=== PATIENT | female | born 1945 | race Caucasian/White ===

== ENCOUNTER 2021-11-02 17:21 | Inpatient (IN) | payer MEDICARE, OTHER ==
[2021-11-02 20:25] LABS: Hemoglobin 14.3 g/dL (12.0-16.0); Mean Corpuscular HGB CONC 33.4 g/dL (32.0-36.0); Mean Corpuscular Hemoglobin 29.3 pg (27.0-31.0); Mean Corpuscular Volume 87.9 fL (78.0-98.0); Platelet Count 204 thou/uL (130-400); RBC Distribution Width 12.1 % (11.5-14.5); Red Blood Cell (RBC) Count 4.86 mill/uL (4.20-5.40)
[2021-11-02 20:40] LABS: Band 14 % (5-11); Lymphocytes 5 % (21-51); MDiff Complete? YES; Monocytes 5 % (0-10); Neutrophil 75 % (42-75); Platelet Morphology Comment Appears Adequate; Polychromasia SLIGHT = 2-3 cells (100X) (0-2/hpf)
[2021-11-02 20:44] LABS: ALT (SGPT) 20 U/L (8-55); AST (SGOT) 12 U/L (5-34); Alkaline Phosphatase 83 U/L (40-110); Anion Gap 16 mmol/L (10-20); BUN (Urea Nitrogen) 18 mg/dL (9.8-20.1); Bilirubin, Total 0.6 mg/dL (0.2-1.2); Calc. Creatinine Clearance 0 mL/min (70-130); Calcium 9.3 mg/dL (7.8-10.44); Carbon Dioxide 23 mmol/L (23-31); Chloride 100 mmol/L (98-107); Globulin 3.2 g/dL (2.4-3.5); Glucose 454 mg/dL (83-110); Potassium 4.1 mmol/L (3.5-5.1); Protein, Total 7.2 g/dL (5.8-8.1); Sodium 135 mmol/L (136-145)
[2021-11-02] MEDS ORDERED: cefTRIAXone\\ROCEPHIN 2 GM VIAL ONE (21:40)
[2021-11-02] MEDS ORDERED: Insulin Regular 300 UNITS/3 ML VIAL ONE (22:57)
[2021-11-03 00:07] VITALS: BMI 30.7
[2021-11-03] MEDS ORDERED: Ondansetron ODT 4 MG TAB SL PRN (00:15)
[2021-11-03] MEDS ORDERED: Acetaminophen 325 MG TAB PO PRN (00:15)
[2021-11-03] MEDS ORDERED: Ondansetron PF 4 MG/2 ML Vial IVP PRN (00:15)
[2021-11-03] MEDS ORDERED: Dextrose 50% Abboject 50 ML SYRINGE SLOW IVP PRN (02:36)
[2021-11-03] MEDS ORDERED: HumaLOG 300 UNITS/3 ML VIAL SC PRN (02:36)
[2021-11-03] MEDS ORDERED: Dextrose 5% in Water 1,000 ML IV PRN (02:36)
[2021-11-03 04:03] LABS: Bacteria/HPF 1+ HPF (None Seen); Bilirubin Negative (Negative); Blood, Urine Trace (Negative); Clarity Clear (Clear); Glucose, Urine (Dipstick) Greater than 1000 mg/dL (Negative); Ketone, Urine Trace mg/dL (Negative); Leukocyte 75 Leu/uL (Negative); Nitrite 2+ (Negative); Protein, Urine (Dipstick) 20 mg/dL (Neg-Trace); RBC/HPF 0-3 HPF (0-3); Specific Gravity, Urine 1.024 (1.002-1.036); Squamous Epithelial 0-3 HPF (0-3); Urobilinogen Normal mg/dL (Less than 2); WBC/HPF Greater than 50 HPF (0-3); pH, Urine 5.5 (5.0-9.0)
[2021-11-03 04:04] LABS: Urine Culture Reflex Yes Yes
[2021-11-03] MEDS ORDERED: cefTRIAXone\\ROCEPHIN 2 GM in Sodium Chloride 0.9% 100 ML IVPB SCH (04:30)
[2021-11-03 05:09] LABS: #Eosinphils 0.1 thou/uL (0.0-0.7); #Lymphocytes 2.4 thou/uL (1.20-3.40); #Monocytes 1.2 thou/uL (0.11-0.59); #Neutrophils 13.9 thou/uL (1.40-6.50); %Basophils 0.2 % (0.0-1.0); %Eosinophils 0.3 % (0.0-10.0); %Lymphocytes 13.8 % (21.0-51.0); %Monocytes 6.7 % (0.0-10.0); Mean Corpuscular HGB CONC 34.3 g/dL (32.0-36.0); Mean Corpuscular Hemoglobin 29.7 pg (27.0-31.0); Mean Corpuscular Volume 86.8 fL (78.0-98.0); Mean Platelet Volume 7.7 fL (7.4-10.4); Platelet Count 172 thou/uL (130-400); RBC Distribution Width 12.1 % (11.5-14.5); Red Blood Cell (RBC) Count 4.36 mill/uL (4.20-5.40); White Blood Cell (WBC) Count 17.6 thou/uL (4.8-10.8)
[2021-11-03 05:27] LABS: Lactic Acid 1.4 mmol/L (0.5-2.2)
[2021-11-03 05:32] LABS: Anion Gap 9 mmol/L (10-20); BUN (Urea Nitrogen) 15 mg/dL (9.8-20.1); Calc. Creatinine Clearance 61 mL/min (70-130); Calcium 9.1 mg/dL (7.8-10.44); Carbon Dioxide 25 mmol/L (23-31); Chloride 104 mmol/L (98-107); Glucose 315 mg/dL (83-110); Potassium 3.7 mmol/L (3.5-5.1); Sodium 134 mmol/L (136-145)
[2021-11-03] MEDS ORDERED: Cefepime 2 GM in Sodium Chloride 0.9% 100 ML IVPB SCH (06:00)
[2021-11-03] MEDS: Sodium Chloride 0.9% 1,000 ML IV SCH ×3 (06:23→16:35)
[2021-11-03] MEDS ORDERED: FLU VACC QS2021-22(65YR UP)/PF 240 MCG/0.7 ML SYRINGE IM ONE (09:00)
[2021-11-03] MEDS ORDERED: Enoxaparin Sodium 30 MG/0.3 ML SYRINGE SC SCH (09:00)
[2021-11-03] MEDS: Lantus 1000 UNITS/10 ML VIAL SC SCH ×2 (09:42→21:42)
[2021-11-03] MEDS: HumaLOG 300 UNITS/3 ML VIAL SC PRN ×3 (12:31→21:42)
[2021-11-03 13:15] LABS: SARS-CoV-2 PCR by NAA Not Detected (NotDetected)
[2021-11-03 17:01] LABS: Troponin I Less than 0.010 ng/mL (< 0.028)
[2021-11-03] MEDS: Budesonide 0.5 MG/2 ML NEB NEB SCH (18:21)
[2021-11-03] MEDS: Atorvastatin Calcium 20 MG TAB PO SCH (20:19)
[2021-11-03] MEDS: cefTRIAXone\\ROCEPHIN 2 GM in Sodium Chloride 0.9% 100 ML IVPB SCH (20:19)
[2021-11-03] MEDS: Doxycycline 100 MG CAP PO SCH (20:20)
[2021-11-03] MEDS: Enoxaparin Sodium 40 MG/0.4 ML SYRINGE SC SCH (20:20)
[2021-11-03] MEDS: Saccharomyces boulardii 250 MG CAP PO SCH (20:20)
[2021-11-03] MEDS: Multivit, Therapeutic 1 TAB PO SCH (20:20)
[2021-11-04 00:55] LABS: Legionella Urinary Ag Negative (Negative); Strep pneumo Urine Ag NEGATIVE (NEGATIVE)
[2021-11-04] MEDS: Sodium Chloride 0.9% 1,000 ML IV SCH ×2 (02:06→12:00)
[2021-11-04 05:29] LABS: #Basophils 0.1 thou/uL (0.0-0.2); #Eosinphils 0.2 thou/uL (0.0-0.7); #Lymphocytes 2.9 thou/uL (1.20-3.40); #Monocytes 0.7 thou/uL (0.11-0.59); %Basophils 0.5 % (0.0-1.0); %Eosinophils 1.9 % (0.0-10.0); %Lymphocytes 24.2 % (21.0-51.0); %Monocytes 5.7 % (0.0-10.0); %Neutrophils 67.7 % (42.0-75.0); Hemoglobin 12.8 g/dL (12.0-16.0); Mean Corpuscular HGB CONC 33.1 g/dL (32.0-36.0); Mean Corpuscular Hemoglobin 28.9 pg (27.0-31.0); Mean Corpuscular Volume 87.3 fL (78.0-98.0); Mean Platelet Volume 8.1 fL (7.4-10.4); Platelet Count 159 thou/uL (130-400); RBC Distribution Width 12.1 % (11.5-14.5); Red Blood Cell (RBC) Count 4.44 mill/uL (4.20-5.40); White Blood Cell (WBC) Count 11.8 thou/uL (4.8-10.8)
[2021-11-04] MEDS: HumaLOG 300 UNITS/3 ML VIAL SC PRN ×4 (06:06→20:58)
[2021-11-04 06:07] LABS: Anion Gap 13 mmol/L (10-20); BUN (Urea Nitrogen) 14 mg/dL (9.8-20.1); Calc. Creatinine Clearance 66 mL/min (70-130); Calcium 8.8 mg/dL (7.8-10.44); Carbon Dioxide 20 mmol/L (23-31); Chloride 105 mmol/L (98-107); Glucose 250 mg/dL (83-110); Magnesium 1.6 mg/dL (1.6-2.6); Potassium 3.2 mmol/L (3.5-5.1); Sodium 135 mmol/L (136-145)
[2021-11-04] MEDS: Budesonide 0.5 MG/2 ML NEB NEB SCH ×2 (07:13→20:11)
[2021-11-04] MEDS ORDERED: Magnesium Sulfate 4 GM in Sodium Chloride 0.9% 250 ML 250 ML IVPB SCH (07:45)
[2021-11-04] MEDS: Lantus 1000 UNITS/10 ML VIAL SC SCH ×3 (08:52→22:56)
[2021-11-04] MEDS: Doxycycline 100 MG CAP PO SCH ×3 (08:53→22:55)
[2021-11-04] MEDS: Potassium Chloride 20 MEQ TAB PO SCH ×3 (08:53→16:24)
[2021-11-04] MEDS: Lisinopril 5 MG TAB PO SCH (08:53)
[2021-11-04] MEDS: Aspirin 81 mg Enteric Coated Tablet PO SCH (08:53)
[2021-11-04] MEDS ORDERED: Lantus 1000 UNITS/10 ML VIAL SC SCH (10:30)
[2021-11-04] MEDS: Atorvastatin Calcium 20 MG TAB PO SCH ×2 (20:55→22:55)
[2021-11-04] MEDS: Enoxaparin Sodium 40 MG/0.4 ML SYRINGE SC SCH ×2 (20:55→22:55)
[2021-11-04] MEDS: Docusate 100 MG CAP PO SCH ×2 (20:55→22:53)
[2021-11-04] MEDS: Saccharomyces boulardii 250 MG CAP PO SCH ×2 (20:55→22:56)
[2021-11-04] MEDS: Multivit, Therapeutic 1 TAB PO SCH ×2 (20:55→22:56)
[2021-11-04] MEDS: cefTRIAXone\\ROCEPHIN 2 GM in Sodium Chloride 0.9% 100 ML IVPB SCH (20:56)
[2021-11-05] MEDS ORDERED: Electrolyte Replacement Protocol 1 EACH FS PRN (05:00)
[2021-11-05 05:11] LABS: #Basophils 0.1 thou/uL (0.0-0.2); #Eosinphils 0.4 thou/uL (0.0-0.7); #Lymphocytes 2.4 thou/uL (1.20-3.40); #Monocytes 0.6 thou/uL (0.11-0.59); %Basophils 0.5 % (0.0-1.0); %Eosinophils 3.8 % (0.0-10.0); %Lymphocytes 22.8 % (21.0-51.0); %Monocytes 5.8 % (0.0-10.0); %Neutrophils 67.2 % (42.0-75.0); Hemoglobin 13.1 g/dL (12.0-16.0); Mean Corpuscular HGB CONC 32.9 g/dL (32.0-36.0); Mean Corpuscular Hemoglobin 29.2 pg (27.0-31.0); Mean Corpuscular Volume 88.8 fL (78.0-98.0); Mean Platelet Volume 7.7 fL (7.4-10.4); Platelet Count 197 thou/uL (130-400); RBC Distribution Width 12.1 % (11.5-14.5); Red Blood Cell (RBC) Count 4.47 mill/uL (4.20-5.40); White Blood Cell (WBC) Count 10.4 thou/uL (4.8-10.8)
[2021-11-05 05:32] LABS: Anion Gap 10 mmol/L (10-20); BUN (Urea Nitrogen) 10 mg/dL (9.8-20.1); Calc. Creatinine Clearance 65 mL/min (70-130); Calcium 9.1 mg/dL (7.8-10.44); Carbon Dioxide 26 mmol/L (23-31); Chloride 106 mmol/L (98-107); Glucose 236 mg/dL (83-110); Phosphorus 2.5 mg/dL (2.3-4.7); Potassium 3.9 mmol/L (3.5-5.1); Sodium 138 mmol/L (136-145)
[2021-11-05] MEDS ORDERED: Magnesium 2 GM/50 ML 2 GM in Premix Bag 1 BAG IVPB SCH (07:00)
[2021-11-05] MEDS: Budesonide 0.5 MG/2 ML NEB NEB SCH ×2 (07:40→19:31)
[2021-11-05] MEDS: Aspirin 81 mg Enteric Coated Tablet PO SCH (09:18)
[2021-11-05] MEDS: Doxycycline 100 MG CAP PO SCH ×2 (09:18→19:44)
[2021-11-05] MEDS: Lantus 1000 UNITS/10 ML VIAL SC SCH ×2 (09:18→19:45)
[2021-11-05] MEDS: Docusate 100 MG CAP PO SCH ×2 (09:18→19:44)
[2021-11-05] MEDS: Lisinopril 5 MG TAB PO SCH (09:19)
[2021-11-05] MEDS: Sodium Chloride 0.9% 1,000 ML IV SCH (10:44)
[2021-11-05] MEDS: HumaLOG 300 UNITS/3 ML VIAL SC PRN ×3 (11:23→19:46)
[2021-11-05] MEDS: Saccharomyces boulardii 250 MG CAP PO SCH (19:44)
[2021-11-05] MEDS: Atorvastatin Calcium 20 MG TAB PO SCH (19:44)
[2021-11-05] MEDS: Multivit, Therapeutic 1 TAB PO SCH (19:44)
[2021-11-05] MEDS: Enoxaparin Sodium 40 MG/0.4 ML SYRINGE SC SCH (19:44)
[2021-11-05] MEDS: cefTRIAXone\\ROCEPHIN 2 GM in Sodium Chloride 0.9% 100 ML IVPB SCH (19:45)
[2021-11-06] MEDS: Lisinopril 5 MG TAB PO SCH (07:50)
[2021-11-06] MEDS: Docusate 100 MG CAP PO SCH ×2 (07:50→20:15)
[2021-11-06] MEDS: Doxycycline 100 MG CAP PO SCH ×2 (07:50→20:15)
[2021-11-06] MEDS: Aspirin 81 mg Enteric Coated Tablet PO SCH (07:51)
[2021-11-06] MEDS: Lantus 1000 UNITS/10 ML VIAL SC SCH ×2 (07:51→20:15)
[2021-11-06] MEDS: Budesonide 0.5 MG/2 ML NEB NEB SCH ×2 (10:26→19:40)
[2021-11-06] MEDS: HumaLOG 300 UNITS/3 ML VIAL SC PRN ×2 (11:15→17:08)
[2021-11-06] MEDS: Sodium Chloride 0.9% 1,000 ML IV SCH (17:08)
[2021-11-06] MEDS: Enoxaparin Sodium 40 MG/0.4 ML SYRINGE SC SCH (20:15)
[2021-11-06] MEDS: cefTRIAXone\\ROCEPHIN 2 GM in Sodium Chloride 0.9% 100 ML IVPB SCH (20:15)
[2021-11-06] MEDS: Atorvastatin Calcium 20 MG TAB PO SCH (20:15)
[2021-11-06] MEDS: Saccharomyces boulardii 250 MG CAP PO SCH (20:16)
[2021-11-06] MEDS: Multivit, Therapeutic 1 TAB PO SCH (20:16)
[2021-11-07] MEDS: Budesonide 0.5 MG/2 ML NEB NEB SCH ×2 (07:54→19:13)
[2021-11-07] MEDS: Doxycycline 100 MG CAP PO SCH ×2 (08:50→21:53)
[2021-11-07] MEDS: Aspirin 81 mg Enteric Coated Tablet PO SCH (08:50)
[2021-11-07] MEDS: Lisinopril 5 MG TAB PO SCH (08:50)
[2021-11-07] MEDS: Docusate 100 MG CAP PO SCH ×2 (08:50→21:53)
[2021-11-07] MEDS: Lantus 1000 UNITS/10 ML VIAL SC SCH ×2 (10:25→21:52)
[2021-11-07] MEDS: HumaLOG 300 UNITS/3 ML VIAL SC PRN ×2 (12:28→17:54)
[2021-11-07] MEDS: Sodium Chloride 0.9% 1,000 ML IV SCH (20:25)
[2021-11-07] MEDS: Enoxaparin Sodium 40 MG/0.4 ML SYRINGE SC SCH (21:53)
[2021-11-07] MEDS: Atorvastatin Calcium 20 MG TAB PO SCH (21:53)
[2021-11-07] MEDS: Saccharomyces boulardii 250 MG CAP PO SCH (21:53)
[2021-11-07] MEDS: Multivit, Therapeutic 1 TAB PO SCH (21:53)
[2021-11-07] MEDS: cefTRIAXone\\ROCEPHIN 2 GM in Sodium Chloride 0.9% 100 ML IVPB SCH (21:54)
[2021-11-08] MEDS: Budesonide 0.5 MG/2 ML NEB NEB SCH ×2 (07:36→20:07)
[2021-11-08] MEDS: Aspirin 81 mg Enteric Coated Tablet PO SCH (08:54)
[2021-11-08] MEDS: Doxycycline 100 MG CAP PO SCH ×2 (08:55→21:17)
[2021-11-08] MEDS: Docusate 100 MG CAP PO SCH ×2 (08:55→21:18)
[2021-11-08] MEDS: Lisinopril 5 MG TAB PO SCH (08:55)
[2021-11-08] MEDS: Lantus 1000 UNITS/10 ML VIAL SC SCH ×2 (08:57→21:17)
[2021-11-08] MEDS: Sodium Chloride 0.9% 1,000 ML IV SCH (10:19)
[2021-11-08] MEDS: HumaLOG 300 UNITS/3 ML VIAL SC PRN ×2 (12:27→21:17)
[2021-11-08] MEDS: Atorvastatin Calcium 20 MG TAB PO SCH (21:16)
[2021-11-08] MEDS: Multivit, Therapeutic 1 TAB PO SCH (21:16)
[2021-11-08] MEDS: Saccharomyces boulardii 250 MG CAP PO SCH (21:18)
[2021-11-08] MEDS: Enoxaparin Sodium 40 MG/0.4 ML SYRINGE SC SCH (21:18)
[2021-11-09 03:49] VITALS: TEMP 97.8
[2021-11-09] MEDS: Budesonide 0.5 MG/2 ML NEB NEB SCH (07:31)
[2021-11-09] MEDS: Aspirin 81 mg Enteric Coated Tablet PO SCH (08:13)
[2021-11-09] MEDS: Lisinopril 5 MG TAB PO SCH (08:13)
[2021-11-09] MEDS: Docusate 100 MG CAP PO SCH (08:14)
[2021-11-09] MEDS: Doxycycline 100 MG CAP PO SCH (08:14)
[2021-11-09] MEDS: Lantus 1000 UNITS/10 ML VIAL SC SCH (08:14)
[2021-11-09 10:56] VITALS: BP 151/69
== END 2021-11-09 16:15 | disposition home health service (06) | DRG 871 ==
LOC: ERS 17:21 → T4-A 22:47 → 2SW 11-03 05:32
PROVIDERS: ADMIT Student in an Organized Health Care Education/Training Program; ATTEND Internal Medicine
DX: A41.9 Sepsis, unspecified organism (principal); J69.0 Pneumonitis due to inhalation of food and vomit; Z20.822 Contact with and (suspected) exposure to COVID-19; N39.0 Urinary tract infection, site not specified; E87.1 Hypo-osmolality and hyponatremia; N17.9 Acute kidney failure, unspecified; E66.9 Obesity, unspecified; E11.65 Type 2 diabetes mellitus with hyperglycemia; S46.011A Strain of muscle(s) and tendon(s) of the rotator cuff of right shoulder, initial encounter; W18.30XA Fall on same level, unspecified, initial encounter; E11.649 Type 2 diabetes mellitus with hypoglycemia without coma; N18.2 Chronic kidney disease, stage 2 (mild); I12.9 Hypertensive chronic kidney disease with stage 1 through stage 4 chronic kidney disease, or unspecified chronic kidney disease; E11.22 Type 2 diabetes mellitus with diabetic chronic kidney disease; E78.5 Hyperlipidemia, unspecified; E83.42 Hypomagnesemia; E87.6 Hypokalemia; Z88.0 Allergy status to penicillin; Z28.21 Immunization not carried out because of patient refusal; Z68.30 Body mass index [BMI] 30.0-30.9, adult; Z79.899 Other long term (current) drug therapy; Z79.4 Long term (current) use of insulin; Z79.84 Long term (current) use of oral hypoglycemic drugs
CPT/HCPCS: 36415; 36416; 70450; 71045; 71046; 72125; 80048; 80053; 81001; 83605; 83735; 84100; 84484; 85025; 86140; 87040; 87086; 87449; 87899; 93005; 93306; 94640; 96365; 96375; J0696; J1650; J1815; J3475; J3490; J7050; J7620; J7626; U0003; U0005

== ENCOUNTER 2023-05-16 14:30 | Outpatient (CLI) | payer MEDICARE | END 2023-05-16 14:31 | disposition home or self-care (01) | LOC: BICCT 14:30 | PROVIDERS: ATTEND Internal Medicine | DX: R41.3 Other amnesia (principal); R41.82 Altered mental status, unspecified; G93.89 Other specified disorders of brain; I65.29 Occlusion and stenosis of unspecified carotid artery; J34.89 Other specified disorders of nose and nasal sinuses | CPT/HCPCS: 70450 ==